=== PATIENT | female | born 1975 | race Caucasian/White ===

== ENCOUNTER 2020-01-09 08:27 | Day surgery (SDC) | payer BC ==
[~2020-01-09] VITALS: Ht 167.6 cm; Wt 91.0 kg
[~2020-01-09 08:27] MED LIST: BENZ100A PO; Imitrex50 MG PO; PROAIR DIGIHAL90 MCG INH; TRAM50; ZOFRAN4 MG
--- NOTE | 2020-01-09 09:33 | NUR ---
01/09/[address] WAS NOTIFIED THAT THE PATIENT HAS BLACKBERRY SCRATCHES ON THE OPERATIVE HAND, DR APODACA ASSESS AND OK'S TO PROCEED.
--- NOTE | 2020-01-09 09:59 | NUR ---
01/09/20 0959 Ti Kinney A SMALL SCRATCHES NOTED ON BACK OF RIGHT HAND DURING PREP. SKIN INTACT.
--- NOTE | 2020-01-09 10:56 | NUR ---
01/09/20 1056 CHAD DAVIDSON PATIENT OBSTRUCTING AIRWAY ON ARRIVAL TO PACU. JAW LIFT/O2 APPLIED, O2 SATS IMPROVED. FLUMAZENIL ADMINISTERED PER DR. ACOSTA'S ORDERS. PATIENT ALERT AND ORIENTED FOLLOWING FLUMAZENIL. RATES PAIN AT 4/10, DECLINES NEED FOR INTERVENTION AT THIS TIME. ARM ELEVATED ON PILLOW, ICE APPLIED. CAP REFILL WNL ON RUE, PATIENT REPORTS NUMBNESS/TINGLING D/T LOCAL ANESTHETIC. DENIES NAUSEA. VSS ON ROOM AIR AT DISCHARGE FROM PACU.
== END 2020-01-09 11:59 | disposition home or self-care (01) ==
LOC: ORSCSDS 08:27
PROVIDERS: Orthopaedic Surgery
PROC: 01S40ZZ Reposition Ulnar Nerve, Open Approach (ICD-10-PCS; principal; 2020-01-09 09:45)
PROC: 01N50ZZ Release Median Nerve, Open Approach (ICD-10-PCS; principal; 2020-01-09 09:45)
DX: G56.01 Carpal tunnel syndrome, right upper limb (principal); G56.21 Lesion of ulnar nerve, right upper limb; E78.5 Hyperlipidemia, unspecified; J45.909 Unspecified asthma, uncomplicated; Z79.899 Other long term (current) drug therapy
CPT/HCPCS: J0690; J1100; J1885; J2250; J2405; J2704; J2795; J3010; J7120

== ENCOUNTER → 2020-07-15 | Outpatient (CLI) | payer BC ==
[~2020-07-15] MED LIST changes: +CYCL10 PO; +IBUP200 PO; +ONDA4; +ONDA4 PO; +OXYC5
[2020-07-17 03:09] LABS: CHLAMYDIA TRACHOMATIS, NAA Negative (Negative); NEISSERIA GONORRHOEAE, NAA Negative (Negative)
== END | disposition home or self-care (01) ==
LOC: LAB SHORT 17:40 → LAB 17:40
PROVIDERS: Advanced Practice Midwife
DX: Z30.09 Encounter for other general counseling and advice on contraception (principal)
CPT/HCPCS: 87491; 87591

== ENCOUNTER → 2021-01-30 | Outpatient (CLI) | payer SELFPAY | END | disposition home or self-care (01) | LOC: LAB SHORT 14:48 → LAB 14:48 | DX: R30.0 Dysuria (principal) | CPT/HCPCS: 87086 ==